=== PATIENT | female | born 1980 | race Caucasian/White ===

== ENCOUNTER 2016-02-24 00:07 | Emergency (ER) | payer BC ==
[~2016-02-24] VITALS: Ht 160 cm; Wt 84.0 kg
[~2016-02-24 00:07] MED LIST: ACCOLATE 220 MG/1 TA PO; ALAVERT10 M1 PO; ALLEGRA 180MG180 MG PO; AMOXICILLIN 8751 TAB PO; CLEOCIN HCL300 MG PO; FLEXERIL 1010 MG/TAB PO; NO HOME MEDICATIONS; PHENERGAN 25 TA25 MG PO; PREDNISONE20 MG PO; PRENATAL VITAMI1 TAB PO; PRENATAL1 TA1 PO; PROVENTIL0.09 MG/A1 IH; VALTREX PO; VOLTAREN 75 DR75 MG PO; ZOFRAN 4MG T4 MG/TAB PO
[2016-02-24 00:09] VITALS: TEMP 98.4
[2016-02-24] MEDS ORDERED: FLAGYL500 MG PO (00:27)
[2016-02-24] MEDS ORDERED: PRENATAL1 TA7 PO (00:28)
[2016-02-24 01:03] LABS: PH 7 (5-8); URINE APPEARANCE Cloudy; URINE BACTERIA Rare /hpf; URINE BILIRUBIN Negative (NEGATIVE); URINE BLOOD Negative (NEGATIVE); URINE COLOR Amber; URINE GLUCOSE Negative (NEGATIVE); URINE KETONE Negative (NEGATIVE); URINE RBC 0-2 /hpf; URINE UROBILINOGEN Negative (NEGATIVE)
[2016-02-24 01:40] VITALS: BP 94/46; PULSE 96
== END 2016-02-24 01:43 | disposition home or self-care (01) ==
LOC: COL.ER 00:07
PROVIDERS: Emergency Medicine
DX: O99.612 Diseases of the digestive system complicating pregnancy, second trimester (principal); R10.31 Right lower quadrant pain; Z3A.18 18 weeks gestation of pregnancy
CPT/HCPCS: J3010

== ENCOUNTER → 2016-03-06 | Outpatient (CLI) | payer BC ==
[~2016-03-06] MED LIST changes: +FLAGYL500 MG PO; +IBU800 M1 PO; +NORMODYNE200 MG PO; +PERCOCET 325 MG1 TA2 PO; +PRENATAL1 TA7 PO; +PROCARDIA XL 3030 MG PO; +SUDAFED30 MG PO; +TYLENOL 500MG500 MG PO
== END ==
LOC: COL.RAD 12:50
DX: O26.892 Other specified pregnancy related conditions, second trimester (principal); M54.5 Low back pain; Z3A.20 20 weeks gestation of pregnancy

== ENCOUNTER 2016-03-20 21:50 | Emergency (ER) | payer BC ==
[~2016-03-20] VITALS: Ht 160 cm; Wt 84.1 kg
[~2016-03-20 21:50] MED LIST changes: -IBU800 M1 PO; -NORMODYNE200 MG PO; -PERCOCET 325 MG1 TA2 PO; -PROCARDIA XL 3030 MG PO; -SUDAFED30 MG PO; -TYLENOL 500MG500 MG PO
[2016-03-20 21:52] VITALS: BP 126/41; TEMP 98.5
[2016-03-20] MEDS ORDERED: AMOXICILLIN 8751 TAB PO (21:58)
[2016-03-20] MEDS ORDERED: SUDAFED30 MG PO (21:59)
[2016-03-20 22:53] LABS: INFLUENZA B NEGATIVE
[2016-03-20] MEDS ORDERED: PREDNISONE20 MG PO (23:11)
[2016-03-20 23:39] VITALS: PULSE 100
== END 2016-03-20 23:39 | disposition home or self-care (01) ==
LOC: COL.ER 21:50
PROVIDERS: Family Medicine
DX: H66.93 Otitis media, unspecified, bilateral (principal)
CPT/HCPCS: J7512

== ENCOUNTER 2016-03-27 10:11 | Outpatient (CLI) | payer BC ==
[~2016-03-27] VITALS: Ht 160 cm; Wt 85.0 kg
[~2016-03-27 10:11] MED LIST changes: +SUDAFED30 MG PO
[2016-03-27 10:30] VITALS: BP 120/76; PULSE 102; TEMP 98.1
[2016-03-27] MEDS ORDERED: TYLENOL 500MG500 MG PO (10:40)
[2016-03-27 12:30] VITALS: BP 110/65; PULSE 93; TEMP 98
[2016-03-27 12:59] LABS: BASO % 0.3 % (0.0-2.0); EOS # 0.1 (0.0-0.7); EOS % 0.5 % (0-4.0); GRAN # 10.6 (1.4-6.5); GRAN % 72.5 % (42.2-75.2); LYMPH # 2.6 (1.2-3.4); MEAN CELL VOLUME 90 fl (80.0-100.0); MEAN CORPUSCULAR HGB CONC 34 g/dl (33.0-37.0); MEAN PLATELET VOLUME 10.1 fl (7.4-10.4); MONO % 6.9 % (1.7-9.3); PLATELET COUNT 348 K/mm3 (130-400); RED BLOOD COUNT 3.65 M/mm3 (4.10-5.30); REDCELL DISTRIBUTION WIDTH-CV 12.4 % (11.5-14.5); WHITE BLOOD COUNT 14.6 K/mm3 (4.8-10.8)
[2016-03-27 13:06] LABS: HEMOGLOBIN 11.3 g/dl (12.5-16.0); MEAN CORPUSCULAR HEMOGLOBIN 31 pg (27.0-31.0)
[2016-03-27 13:14] LABS: ADJUSTED CALCIUM 9.6 mg/dL (8.4-10.2); ALBUMIN 3.6 gm/dL (3.5-5.0); BILIRUBIN,TOTAL 0.5 mg/dL (0.0-1.0); CALCIUM 9.3 mg/dL (8.4-10.2); CREATININE, serum 0.47 mg/dL (0.52-1.25); POTASSIUM 3.1 mmol/L (3.4-5.0); TOTAL PROTEIN 6.9 gm/dL (6.4-8.2)
[2016-03-27 13:32] LABS: PH 6 (5-8); SQUAMOUS EPITHELIAL None Seen /hpf; URINE APPEARANCE Cloudy; URINE BACTERIA None Seen /hpf; URINE BILIRUBIN Negative (NEGATIVE); URINE BLOOD 3+ (NEGATIVE); URINE COLOR Red; URINE GLUCOSE Negative (NEGATIVE); URINE KETONE Negative (NEGATIVE); URINE RBC >50 /hpf; URINE UROBILINOGEN Negative (NEGATIVE); URINE WBC None Seen /hpf
[2016-03-27 13:45] VITALS: BP 115/74; PULSE 94; TEMP 98.1
== END 2016-03-27 14:00 | disposition home or self-care (01) ==
LOC: LDRO 10:11 → LDR 10:40 → LDRO 14:00
PROVIDERS: Obstetrics & Gynecology
DX: O46.8X2 Other antepartum hemorrhage, second trimester (principal); O99.212 Obesity complicating pregnancy, second trimester; O99.332 Smoking (tobacco) complicating pregnancy, second trimester; Z3A.22 22 weeks gestation of pregnancy; F17.210 Nicotine dependence, cigarettes, uncomplicated

== ENCOUNTER 2016-07-02 22:15 | Inpatient (IN) | payer BC ==
[~2016-07-02] VITALS: Ht 160 cm; Wt 93.2 kg
[~2016-07-02 22:15] MED LIST changes: +TYLENOL 500MG500 MG PO
[2016-07-02 23:00] VITALS: BP 132/74; PULSE 91; TEMP 98
[2016-07-02 23:30] VITALS: BP 109/59; PULSE 89
[2016-07-03] VITALS (48 sets, daily range): BP systolic 94–144; BP diastolic 53–88; PULSE 77–110; TEMP 97.5–98.7
[2016-07-03 01:48] LABS: BASO % 0.2 % (0.0-2.0); EOS # 0.2 (0.0-0.7); GRAN % 78.5 % (42.2-75.2); LYMPH # 2.4 (1.2-3.4); LYMPH % 13.4 % (20.0-51.0); MEAN CELL VOLUME 88 fl (80.0-100.0); MEAN CORPUSCULAR HGB CONC 35 g/dl (33.0-37.0); MEAN PLATELET VOLUME 10.4 fl (7.4-10.4); MONO # 1.1 (0.1-0.6); MONO % 6.3 % (1.7-9.3); PLATELET COUNT 281 K/mm3 (130-400); RED BLOOD COUNT 3.86 M/mm3 (4.10-5.30); REDCELL DISTRIBUTION WIDTH-CV 12.6 % (11.5-14.5); WHITE BLOOD COUNT 17.8 K/mm3 (4.8-10.8)
[2016-07-03 01:53] LABS: HEMATOCRIT 34.1 % (37.0-47.0); HEMOGLOBIN 11.8 g/dl (12.5-16.0); MEAN CORPUSCULAR HEMOGLOBIN 31 pg (27.0-31.0)
[2016-07-04 03:35] VITALS: BP 99/44; PULSE 77; TEMP 97.7
[2016-07-04 08:00] VITALS: BP 105/72; PULSE 79; TEMP 97.9
[2016-07-04] MEDS ORDERED: PERCOCET 325 MG1 TA2 PO (09:43)
[2016-07-04] MEDS ORDERED: IBU800 M1 PO (09:43)
[2016-07-04 14:17] VITALS: BP 137/70; PULSE 85; TEMP 98.1
[2016-07-04 20:45] VITALS: BP 137/81; PULSE 77; TEMP 98
[2016-07-05 09:30] VITALS: BP 127/73; PULSE 81; TEMP 98.3
== END 2016-07-05 16:15 | disposition home or self-care (01) | DRG 775 ==
LOC: LDRO 22:15 → LDR 07-03 01:11 → OB 07-03 01:11
PROVIDERS: Obstetrics & Gynecology
PROC: 10E0XZZ Delivery of Products of Conception, External Approach (ICD-10-PCS; principal; 2016-07-03)
PROC: 0HQ9XZZ Repair Perineum Skin, External Approach (ICD-10-PCS; 2016-07-03)
DX: O99.334 Smoking (tobacco) complicating childbirth (principal); F17.210 Nicotine dependence, cigarettes, uncomplicated; O69.1XX0 Labor and delivery complicated by cord around neck, with compression, not applicable or unspecified; O70.0 First degree perineal laceration during delivery; Z3A.37 37 weeks gestation of pregnancy; Z37.0 Single live birth
CPT/HCPCS: J2405; J2590; J2795; J7120

== ENCOUNTER 2016-07-13 20:55 | Emergency (ER) | payer BC ==
[~2016-07-13] VITALS: Ht 160 cm; Wt 86.4 kg
[~2016-07-13 20:55] MED LIST changes: +IBU800 M1 PO; +PERCOCET 325 MG1 TA2 PO
[2016-07-13 20:58] VITALS: TEMP 98.1
[2016-07-13] MEDS ORDERED: NORMODYNE200 MG PO (21:02)
[2016-07-13 21:58] LABS: BASO % 0.4 % (0.0-2.0); EOS # 0.3 (0.0-0.7); EOS % 3.3 % (0-4.0); GRAN # 4.9 (1.4-6.5); GRAN % 58.9 % (42.2-75.2); LYMPH # 2.5 (1.2-3.4); LYMPH % 29.6 % (20.0-51.0); MEAN CELL VOLUME 90 fl (80.0-100.0); MEAN CORPUSCULAR HGB CONC 33 g/dl (33.0-37.0); MEAN PLATELET VOLUME 9.4 fl (7.4-10.4); MONO # 0.6 (0.1-0.6); MONO % 7.6 % (1.7-9.3); PLATELET COUNT 363 K/mm3 (130-400); RED BLOOD COUNT 3.81 M/mm3 (4.10-5.30); REDCELL DISTRIBUTION WIDTH-CV 12.3 % (11.5-14.5); WHITE BLOOD COUNT 8.4 K/mm3 (4.8-10.8)
[2016-07-13 21:59] LABS: HEMATOCRIT 34.4 % (37.0-47.0); HEMOGLOBIN 11.5 g/dl (12.5-16.0); MEAN CORPUSCULAR HEMOGLOBIN 30 pg (27.0-31.0)
[2016-07-13 22:09] LABS: ADJUSTED CALCIUM 9.2 mg/dL (8.4-10.2); ALBUMIN 3.8 gm/dL (3.5-5.0); BILIRUBIN,TOTAL 0.5 mg/dL (0.0-1.0); CREATININE, serum 0.75 mg/dL (0.52-1.25); POTASSIUM 3.7 mmol/L (3.4-5.0); TOTAL PROTEIN 7.1 gm/dL (6.4-8.2)
[2016-07-13 22:22] LABS: PH 5 (5-8); URINE APPEARANCE Hazy; URINE BACTERIA None Seen /hpf; URINE BILIRUBIN Negative (NEGATIVE); URINE BLOOD 2+ (NEGATIVE); URINE COLOR Yellow; URINE GLUCOSE Negative (NEGATIVE); URINE KETONE Trace (NEGATIVE); URINE RBC 20-50 /hpf; URINE UROBILINOGEN Negative (NEGATIVE)
[2016-07-14] MEDS ORDERED: PROCARDIA XL 3030 MG PO (00:11)
[2016-07-14 01:56] VITALS: BP 172/92; PULSE 71
== END 2016-07-14 01:56 | disposition home or self-care (01) ==
LOC: COL.ER 20:55
PROVIDERS: Emergency Medicine
DX: O99.43 Diseases of the circulatory system complicating the puerperium (principal); O99.89 Other specified diseases and conditions complicating pregnancy, childbirth and the puerperium; O99.335 Smoking (tobacco) complicating the puerperium; O99.63 Diseases of the digestive system complicating the puerperium; I10 Essential (primary) hypertension; R51 Headache; K21.9 Gastro-esophageal reflux disease without esophagitis; Z90.49 Acquired absence of other specified parts of digestive tract

== ENCOUNTER 2017-01-03 18:15 | Inpatient (IN) | payer BC ==
[~2017-01-03] VITALS: Ht 162.6 cm; Wt 89.4 kg
[~2017-01-03 18:15] MED LIST changes: +NORMODYNE200 MG PO; +PROCARDIA XL 3030 MG PO
[2017-01-03] MEDS ORDERED: TOPROL XL100 MG PO (18:24)
[2017-01-03] MEDS ORDERED: WELLBUTRIN SR150 M1 PO (18:25)
[2017-01-03] MEDS ORDERED: BACTRIM DS 8001 TAB PO (18:26)
[2017-01-03 19:44] LABS: HEMATOCRIT 39.2 % (37.0-47.0); HEMOGLOBIN 13.7 g/dl (12.5-16.0); MEAN CELL VOLUME 90 fl (80.0-100.0); MEAN CORPUSCULAR HEMOGLOBIN 32 pg (27.0-31.0); MEAN CORPUSCULAR HGB CONC 35 g/dl (33.0-37.0); MEAN PLATELET VOLUME 10.3 fl (7.4-10.4); PLATELET COUNT 253 K/mm3 (130-400); RED BLOOD COUNT 4.35 M/mm3 (4.10-5.30); WHITE BLOOD COUNT 8.5 K/mm3 (4.8-10.8)
[2017-01-03 19:57] LABS: ADD PATHOLOGY DIFF REVIEW NO
[2017-01-03 20:00] LABS: INFLUENZA A NEGATIVE; INFLUENZA B NEGATIVE
[2017-01-03 20:49] LABS: BAND 20 % (0-10); EOSINOPHIL 2 % (0-4); LYMPHOCYTE 6 % (20.0-51.0); NEUTROPHILS 71 % (42.0-75.2); PLATELET ESTIMATE NORMAL (NORMAL); TOTAL CELLS COUNTED 100
[2017-01-03] MEDS ORDERED: CEPHALEXIN500 M1 PO (20:58)
[2017-01-03 21:40] LABS: ADJUSTED CALCIUM 8.7 mg/dL (8.4-10.2); ALBUMIN 3.5 gm/dL (3.5-5.0); BILIRUBIN,TOTAL 0.8 mg/dL (0.0-1.0); CALCIUM 8.3 mg/dL (8.4-10.2); CREATININE, serum 0.87 mg/dL (0.52-1.25); POTASSIUM 3.8 mmol/L (3.4-5.0)
[2017-01-03 22:54] LABS: COLLECTION METHOD CLEAN CATCH
[2017-01-03 23:14] LABS: MUCOUS Present /lpf; PH 5 (5-8); URINE APPEARANCE Hazy; URINE BACTERIA None Seen /hpf; URINE BILIRUBIN Negative (NEGATIVE); URINE BLOOD Negative (NEGATIVE); URINE COLOR Amber; URINE GLUCOSE Negative (NEGATIVE); URINE KETONE Negative (NEGATIVE); URINE LEUKOCYTE ESTERASE Negative (NEGATIVE); URINE PROTEIN(semi-quant) 1+ (NEGATIVE); URINE RBC None Seen /hpf; URINE UROBILINOGEN Negative (NEGATIVE)
[2017-01-04] VITALS (862 sets, daily range): BP systolic 114–127; BP diastolic 64–71; PULSE 61–102; TEMP 97.3–98.6; O2SAT 91–100
[2017-01-04 01:50] LABS: CEREBROSPINAL TUBE #1; CEREBROSPINAL TUBE #4; CSF APPEARANCE CLEAR; CSF COLOR COLORLESS; CSF POLYMORPHONUCLEAR 83 % (0-6)
[2017-01-04 01:51] LABS: CSF POLYMORPHONUCLEAR 95 % (0-6)
[2017-01-04 05:40] LABS: BASO % 0.3 % (0.0-2.0); EOS # 0.2 (0.0-0.7); EOS % 1.9 % (0-4.0); GRAN # 9.4 (1.4-6.5); GRAN % 87.2 % (42.2-75.2); LYMPH # 0.5 (1.2-3.4); LYMPH % 4.7 % (20.0-51.0); MEAN CELL VOLUME 91 fl (80.0-100.0); MEAN CORPUSCULAR HEMOGLOBIN 31 pg (27.0-31.0); MEAN CORPUSCULAR HGB CONC 34 g/dl (33.0-37.0); MEAN PLATELET VOLUME 10.1 fl (7.4-10.4); MONO # 0.6 (0.1-0.6); MONO % 5.6 % (1.7-9.3); PLATELET COUNT 208 K/mm3 (130-400); RED BLOOD COUNT 3.84 M/mm3 (4.10-5.30); WHITE BLOOD COUNT 10.8 K/mm3 (4.8-10.8)
[2017-01-04 05:50] LABS: ADJUSTED CALCIUM 8.3 mg/dL (8.4-10.2); ALBUMIN 3.2 gm/dL (3.5-5.0); BILIRUBIN,TOTAL 0.6 mg/dL (0.0-1.0); CALCIUM 7.7 mg/dL (8.4-10.2); CREATININE, serum 0.85 mg/dL (0.52-1.25); POTASSIUM 3.9 mmol/L (3.4-5.0); TOTAL PROTEIN 5.6 gm/dL (6.4-8.2)
[2017-01-04 13:41] LABS: C-REACTIVE PROTEIN 6.2 mg/dL (0.0-0.9)
[2017-01-04 13:55] LABS: THYROXINE (T4)-TOTAL 5.9 ug/dL (5.5-11.0)
[2017-01-04 14:09] LABS: THYROID STIMULATING HORMONE 1.5 uIU/mL (0.465-4.680)
[2017-01-05] VITALS (774 sets, daily range): BP systolic 133–152; BP diastolic 68–100; PULSE 54–66; TEMP 97.2–98.2; O2SAT 88–100
[2017-01-05 05:59] LABS: BASO % 0.2 % (0.0-2.0); EOS # 0.3 (0.0-0.7); EOS % 4.7 % (0-4.0); GRAN # 3.6 (1.4-6.5); GRAN % 62.5 % (42.2-75.2); LYMPH # 1.3 (1.2-3.4); LYMPH % 22.8 % (20.0-51.0); MEAN CELL VOLUME 91 fl (80.0-100.0); MEAN CORPUSCULAR HGB CONC 34 g/dl (33.0-37.0); MEAN PLATELET VOLUME 10.5 fl (7.4-10.4); MONO # 0.6 (0.1-0.6); MONO % 9.5 % (1.7-9.3); PLATELET COUNT 193 K/mm3 (130-400); WHITE BLOOD COUNT 5.8 K/mm3 (4.8-10.8)
[2017-01-05 06:06] LABS: HEMATOCRIT 31.7 % (37.0-47.0); HEMOGLOBIN 10.8 g/dl (12.5-16.0); MEAN CORPUSCULAR HEMOGLOBIN 31 pg (27.0-31.0)
[2017-01-05 06:11] LABS: ADJUSTED CALCIUM 8.5 mg/dL (8.4-10.2); ALBUMIN 3.1 gm/dL (3.5-5.0); BILIRUBIN,TOTAL 0.3 mg/dL (0.0-1.0); CALCIUM 7.8 mg/dL (8.4-10.2); CREATININE, serum 0.72 mg/dL (0.52-1.25); POTASSIUM 3.4 mmol/L (3.4-5.0); TOTAL PROTEIN 5.9 gm/dL (6.4-8.2)
[2017-01-05 16:29] LABS: COLLECTION METHOD CLEAN CATCH
[2017-01-05 16:36] LABS: MUCOUS Present /lpf; PH 6 (5-8); URINE APPEARANCE Clear; URINE BACTERIA None Seen /hpf; URINE BILIRUBIN Negative (NEGATIVE); URINE BLOOD 1+ (NEGATIVE); URINE COLOR Straw; URINE GLUCOSE Negative (NEGATIVE); URINE KETONE Trace (NEGATIVE); URINE LEUKOCYTE ESTERASE Negative (NEGATIVE); URINE PROTEIN(semi-quant) Negative (NEGATIVE); URINE RBC 0-2 /hpf; URINE UROBILINOGEN Negative (NEGATIVE); URINE WBC 0-2 /hpf
[2017-01-06 00:55] VITALS: BP 136/90; PULSE 63; TEMP 98
[2017-01-06 06:09] VITALS: BP 139/73; PULSE 55; TEMP 98.2
[2017-01-06 09:15] LABS: BASO % 0.2 % (0.0-2.0); EOS # 0.3 (0.0-0.7); EOS % 5.1 % (0-4.0); GRAN # 3.4 (1.4-6.5); GRAN % 62.8 % (42.2-75.2); HEMATOCRIT 37.5 % (37.0-47.0); LYMPH # 1.2 (1.2-3.4); LYMPH % 22.1 % (20.0-51.0); MEAN CELL VOLUME 88 fl (80.0-100.0); MEAN CORPUSCULAR HEMOGLOBIN 31 pg (27.0-31.0); MEAN CORPUSCULAR HGB CONC 35 g/dl (33.0-37.0); MEAN PLATELET VOLUME 10.4 fl (7.4-10.4); MONO # 0.5 (0.1-0.6); MONO % 9.3 % (1.7-9.3); PLATELET COUNT 263 K/mm3 (130-400); RED BLOOD COUNT 4.28 M/mm3 (4.10-5.30); WHITE BLOOD COUNT 5.5 K/mm3 (4.8-10.8)
[2017-01-06 09:21] LABS: HEMOGLOBIN 13.2 g/dl (12.5-16.0)
[2017-01-06 09:29] LABS: CALCIUM 9.2 mg/dL (8.4-10.2); CREATININE, serum 0.77 mg/dL (0.52-1.25); POTASSIUM 3.3 mmol/L (3.4-5.0)
[2017-01-06 10:00] VITALS: BP 123/83; PULSE 109; TEMP 98.2
[2017-01-06] MEDS ORDERED: DOXYCYCLINE 10100 MG PO (12:10)
[2017-01-06 13:53] VITALS: BP 148/77; PULSE 74; TEMP 98.3
[2017-01-06] MEDS ORDERED: MIDRIN 325 MG-11 CAP PO (17:09)
== END 2017-01-06 18:30 | disposition home or self-care (01) | DRG 872 ==
LOC: COL.ER 18:15 → ICU 01-04 00:53 → SURG 01-04 00:53
PROVIDERS: Emergency Medicine; Internal Medicine; Nurse Practitioner Family; Physician Assistant; Psychiatry & Neurology Neurology
PROC: 009U3ZX Drainage of Spinal Canal, Percutaneous Approach, Diagnostic (ICD-10-PCS; principal; 2017-01-03)
DX: A41.9 Sepsis, unspecified organism (principal); L03.312 Cellulitis of back [any part except buttock and flank]; R65.20 Severe sepsis without septic shock; G43.909 Migraine, unspecified, not intractable, without status migrainosus; J35.01 Chronic tonsillitis; E87.6 Hypokalemia; K21.9 Gastro-esophageal reflux disease without esophagitis; I10 Essential (primary) hypertension; F17.210 Nicotine dependence, cigarettes, uncomplicated
CPT/HCPCS: 99223-AI; 99239; C9113; J0696; J1200; J1650; J1885; J1956; J2405; J2543; J2765; J3010; J3370; J7030; J7050; Q9967

== ENCOUNTER 2017-06-16 23:39 | Emergency (ER) | payer BC ==
[~2017-06-16] VITALS: Ht 162.6 cm; Wt 86.4 kg
[~2017-06-16 23:39] MED LIST changes: +BACTRIM DS 8001 TAB PO; +CEPHALEXIN500 M1 PO; +DOXYCYCLINE 10100 MG PO; +MIDRIN 325 MG-11 CAP PO; +TOPROL XL100 MG PO; +WELLBUTRIN SR150 M1 PO
[2017-06-16 23:44] VITALS: BP 157/93; PULSE 76; TEMP 98
[2017-06-17] MEDS ORDERED: NORCO 325 MG-51 TAB PO (00:40)
== END 2017-06-17 01:31 | disposition home or self-care (01) ==
LOC: COL.ER 23:39
DX: L03.011 Cellulitis of right finger (principal); I10 Essential (primary) hypertension; F17.210 Nicotine dependence, cigarettes, uncomplicated

== ENCOUNTER 2018-03-24 10:41 | Day surgery (SDC) | payer BC ==
[~2018-03-24] VITALS: Ht 160 cm; Wt 98.2 kg
[2018-03-24] VITALS (7 sets, daily range): BP systolic 102–148; BP diastolic 59–84; PULSE 65–80; TEMP 97.7–97.9
[~2018-03-24 10:41] MED LIST changes: +NORCO 325 MG-51 TAB PO
[2018-03-24] MEDS ORDERED: AMOXICILLIN 8751 TAB PO (11:26)
[2018-03-24] MEDS ORDERED: HCTZ 25MG TAB25 MG PO (11:27)
[2018-03-24] MEDS ORDERED: NORCO 325 MG-51 TAB PO (11:28)
[2018-03-24] MEDS ORDERED: IBU800 M1 PO (11:28)
[2018-03-24] MEDS ORDERED: PROBIOTIC-SUNMARK PO (11:29)
[2018-03-24] MEDS ORDERED: ZANAFLEX2 MG PO (11:29)
[2018-03-24] MEDS ORDERED: TUCKS50% TP (11:30)
--- NOTE | 2018-03-24 13:25 | NUR ---
The patient arrived back to [facility] from the recovery room at this time. The patient appears drowsy but arouses easily to her name. The patient's post operative vital signs were started at this time. The patient has mesh undies and fluffed 4x4s in place to her rectal area. Call light is within reach. brought back to be at her bedside. Will continue to monitor the patient.
--- NOTE | 2018-03-24 13:40 | NUR ---
The patient appears to be resting comfortably on the cart at this time. The patient's husbaned remains at her bedside. The patient agrees to try some cranberry juice and water at this time. Will continue to monitor the patient.
--- NOTE | 2018-03-24 13:55 | NUR ---
The patient reports increased pain at her incision site at this time and was given a PRN dose of Fentanyl 50 mcg at this time. The patient's vital signs appear stable. Will continue to monitor the patient.
--- NOTE | 2018-03-24 14:10 | NUR ---
The patient was given some white toast at this time. She had complaints of a headache and her turned the lights down in the room. The patient's vital signs appear stable. Will continue to monitor the patient.
--- NOTE | 2018-03-24 14:45 | NUR ---
The patient was given a PRN dose of Robinson two tabs at this time. The patient ambulated to the bathroom with the stand by assistance of one nurse and appeared to tolerate the activity well. The patient voided without difficulty. The nurse instructed the patient to get dressed and notify the staff when she is ready to be escorted out.
--- NOTE | 2018-03-24 15:05 | NUR ---
Discharge instructions were reviewed with the patient and her at this time. They both verbalized understanding and have no questions for the nurse at this time. The patient's IV to her left hand was removed and a pressure dressing was applied to the site. The patient is dressed and ready to be escorted out.
--- NOTE | 2018-03-24 15:13 | NUR ---
The patient was escorted out via wheelchair to a private vehicle by DOMINGA Horton. The patient's belongings and discharge paperwork were sent with her. The patient's is present to drive her home.
== END 2018-03-24 15:13 | disposition home or self-care (01) ==
LOC: SDCO 10:41
DX: K61.1 Rectal abscess (principal); I10 Essential (primary) hypertension; D64.9 Anemia, unspecified; K21.9 Gastro-esophageal reflux disease without esophagitis; G89.29 Other chronic pain; M54.9 Dorsalgia, unspecified; Z90.49 Acquired absence of other specified parts of digestive tract; Z88.1 Allergy status to other antibiotic agents; Z88.8 Allergy status to other drugs, medicaments and biological substances; Z91.013 Allergy to seafood
CPT/HCPCS: J0690; J1100; J1885; J2405; J2704; J3010; J7120

== ENCOUNTER 2018-05-10 17:55 | Observation (INO) | payer BC ==
[~2018-05-10] VITALS: Ht 175.3 cm; Wt 99.4 kg
[~2018-05-10 17:55] MED LIST changes: +HCTZ 25MG TAB25 MG PO; +PROBIOTIC-SUNMARK PO; +TUCKS50% TP; +ZANAFLEX2 MG PO
[2018-05-10 19:24] LABS: BASO % 0.3 % (0.0-2.0); EOS # 0.1 (0.0-0.7); EOS % 1.3 % (0-4.0); GRAN # 8.6 (1.4-6.5); GRAN % 83.5 % (42.2-75.2); HEMATOCRIT 40.4 % (37.0-47.0); HEMOGLOBIN 14.2 g/dl (12.5-16.0); LYMPH # 1.1 (1.2-3.4); LYMPH % 10.2 % (20.0-51.0); MEAN CELL VOLUME 91 fl (80.0-100.0); MEAN CORPUSCULAR HEMOGLOBIN 32 pg (27.0-31.0); MEAN CORPUSCULAR HGB CONC 35 g/dl (33.0-37.0); MEAN PLATELET VOLUME 9.7 fl (7.4-10.4); MONO # 0.5 (0.1-0.6); MONO % 4.4 % (1.7-9.3); PLATELET COUNT 252 K/mm3 (130-400); RED BLOOD COUNT 4.43 M/mm3 (4.10-5.30); REDCELL DISTRIBUTION WIDTH-CV 12.4 % (11.5-14.5)
[2018-05-10] MEDS ORDERED: HCTZ 25MG TAB25 MG PO (19:32)
[2018-05-10] MEDS ORDERED: LEXAPRO 10MG10 MG PO (19:32)
[2018-05-10] MEDS ORDERED: KAPSPARGO SPRI100 MG PO (19:33)
[2018-05-10] MEDS ORDERED: VITAMIN D31000 I1 PO (19:34)
[2018-05-10] MEDS ORDERED: MULTI VITAMINS1 TAB PO (19:34)
[2018-05-10 19:45] LABS: ALBUMIN 4.1 gm/dL (3.5-5.0); BILIRUBIN,TOTAL 0.7 mg/dL (0.0-1.0); C-REACTIVE PROTEIN 2.5 mg/dL (0.0-0.9); CALCIUM 8.8 mg/dL (8.4-10.2); CREATININE, serum 0.72 mg/dL (0.52-1.25); TOTAL PROTEIN 7.6 gm/dL (6.4-8.2)
[2018-05-10 20:27] LABS: COLLECTION METHOD CLEAN CATCH
[2018-05-10 20:43] LABS: MUCOUS Present /lpf; PH 8 (5-8); URINE APPEARANCE Hazy; URINE BACTERIA Rare /hpf; URINE BILIRUBIN Negative (NEGATIVE); URINE BLOOD 1+ (NEGATIVE); URINE COLOR Yellow; URINE GLUCOSE Negative (NEGATIVE); URINE KETONE Negative (NEGATIVE); URINE LEUKOCYTE ESTERASE 3+ (NEGATIVE); URINE NITRATE Negative (NEGATIVE); URINE PROTEIN(semi-quant) 2+ (NEGATIVE); URINE RBC 20-50 /hpf; URINE UROBILINOGEN >=4.0 mg/dL (NEGATIVE)
--- NOTE | 2018-05-10 23:10 | NUR ---
Patient admitted to room 324 via w/c from ED. Is alert and oriented x4. Reports headache with photophobia, has had since in the ED. Has IVF infusing to left AC site without redness or swelling. Reports nausea with abdominal discomfort radiating to right flank. Patient does have a UTI. Will be on a clear liquid diet. Had a fistulotomy 4 days ago, has 2 small red rubber drains protruding from her anus. These are the size and thickness of a rubber band. No redness or drainage from anal area. Oriented to bed and room.
[2018-05-10] MEDS ORDERED: MASON NATURAL2000 IU PO (23:29)
[2018-05-10] MEDS ORDERED: TOPROL XL100 MG PO (23:32)
--- NOTE | 2018-05-10 23:59 | NUR ---
Morphine 2mg IV given for headache, IV Rocephin 1GM infusing without problem. Patient up to bathroom, thought she needed to have a BM, no results.
[2018-05-11 00:19] VITALS: BP 111/65; PULSE 78; TEMP 98.4
--- NOTE | 2018-05-11 01:05 | NUR ---
Patient reports continued nausea, medicated with Phenergan 12.5mg IV now.
--- NOTE | 2018-05-11 02:34 | NUR ---
Patient resting with eyes closed, no report of nausea. IVF infusing at 125cc/hr without redness or swelling.
[2018-05-11 04:00] VITALS: BP 113/73; PULSE 70; TEMP 98.3
--- NOTE | 2018-05-11 06:00 | NUR ---
No diarrhea reported or continued nausea. Has rested well after IV Phenergan.
[2018-05-11 08:10] VITALS: BP 132/78; PULSE 73; TEMP 98.5
--- NOTE | 2018-05-11 09:47 | NUR ---
DAMIAN met with the patient to discuss discharge plan. The patient lives in [place] with her , Naldo, and their three children. She reports independence with ADLs and does not use any DME. The patient's PCP is Dr. Carri Miller and she receives her medications at the [facility]. She reports no difficulties obtaining her meds. The patient does not have advanced directives and she was not interested in completing them at this time. The patient plans to return home with her family upon discharge. No additional needs at this time.
--- NOTE | 2018-05-11 11:18 | NUR ---
Patient alert and oriented, answers questions appropriately. See assessment. C/o right flank pain. C/o urinary hesitancy and burning. No c/o nausea or vomiting. No other c/o at this time.
--- NOTE | 2018-05-11 11:50 | NUR ---
First visit from the laundry laborer. No needs right now.
[2018-05-11 11:57] VITALS: BP 109/75; PULSE 71; TEMP 98.4
--- NOTE | 2018-05-11 13:36 | NUR ---
Dr Lucio here to see patient.
--- NOTE | 2018-05-11 15:23 | NUR ---
Discharge instructions reviewed with patient and spouse, verbalized understanding. Discharged via wheelchair to auto/home with spouse at 1520.
== END 2018-05-11 15:20 | disposition home or self-care (01) ==
LOC: COL.ER 17:55 → SURG 22:37
PROVIDERS: Nurse Practitioner; ADMIT Surgery
DX: R19.7 Diarrhea, unspecified (principal); R11.2 Nausea with vomiting, unspecified; R10.84 Generalized abdominal pain; I10 Essential (primary) hypertension; F41.9 Anxiety disorder, unspecified; F17.210 Nicotine dependence, cigarettes, uncomplicated
CPT/HCPCS: A4216; G0378; J0696; J1170; J1200; J1885; J2270; J2405; J2550; J2765; J7030

== ENCOUNTER → 2018-06-10 | Outpatient (CLI) | payer BC ==
[~2018-06-10] MED LIST changes: +KAPSPARGO SPRI100 MG PO; +LEXAPRO 10MG10 MG PO; +MASON NATURAL2000 IU PO; +MULTI VITAMINS1 TAB PO; +VITAMIN D31000 I1 PO
== END ==
LOC: COL.RAD 14:00
DX: J35.1 Hypertrophy of tonsils (principal); R59.0 Localized enlarged lymph nodes
CPT/HCPCS: Q9967

== ENCOUNTER 2018-07-01 20:10 | Emergency (ER) | payer BC ==
[~2018-07-01] VITALS: Ht 160 cm; Wt 125.0 kg
[2018-07-01 20:25] VITALS: TEMP 98.7
[2018-07-01] MEDS ORDERED: FLONASE NASAL S16 GM NS (20:49)
[2018-07-01] MEDS ORDERED: ZYRTEC 10MG10 MG PO (20:49)
[2018-07-01] MEDS ORDERED: CYMBALTA 30MG30 MG PO (20:49)
[2018-07-01] MEDS ORDERED: ZANTAC 150MG T150 MG PO (20:50)
[2018-07-01] MEDS ORDERED: SINGULAIR 110 MG/TAB PO (20:50)
[2018-07-01 21:08] LABS: BASO % 0.5 % (0.0-2.0); EOS # 0.3 (0.0-0.7); EOS % 3.2 % (0-4.0); GRAN # 4.9 (1.4-6.5); GRAN % 60.2 % (42.2-75.2); HEMATOCRIT 40.5 % (37.0-47.0); LYMPH % 24.9 % (20.0-51.0); MEAN CELL VOLUME 91 fl (80.0-100.0); MEAN CORPUSCULAR HEMOGLOBIN 32 pg (27.0-31.0); MEAN CORPUSCULAR HGB CONC 35 g/dl (33.0-37.0); MONO # 0.9 (0.1-0.6); MONO % 11.1 % (1.7-9.3); PLATELET COUNT 250 K/mm3 (130-400); RED BLOOD COUNT 4.43 M/mm3 (4.10-5.30); REDCELL DISTRIBUTION WIDTH-CV 12.1 % (11.5-14.5)
[2018-07-01 21:20] LABS: ALBUMIN 4.3 gm/dL (3.5-5.0); BILIRUBIN,TOTAL 0.6 mg/dL (0.0-1.0); C-REACTIVE PROTEIN 1.6 mg/dL (0.0-0.9); CALCIUM 9.1 mg/dL (8.4-10.2); CREATININE, serum 0.66 (0.52-1.25); POTASSIUM 3.7 mmol/L (3.4-5.0)
[2018-07-01 23:20] VITALS: BP 110/69; PULSE 78
== END 2018-07-01 23:20 | disposition home or self-care (01) ==
LOC: COL.ER 20:10
PROVIDERS: Emergency Medicine
DX: R10.2 Pelvic and perineal pain (principal); K21.9 Gastro-esophageal reflux disease without esophagitis; M79.7 Fibromyalgia; Z90.49 Acquired absence of other specified parts of digestive tract; Z98.890 Other specified postprocedural states; Z79.51 Long term (current) use of inhaled steroids
CPT/HCPCS: J1885; J2270; J2405; J7030; Q9967

== ENCOUNTER 2018-10-27 14:49 | Emergency (ER) | payer BC ==
[~2018-10-27] VITALS: Ht 160 cm; Wt 95.5 kg
[~2018-10-27 14:49] MED LIST changes: +CYMBALTA 30MG30 MG PO; +FLONASE NASAL S16 GM NS; +SINGULAIR 110 MG/TAB PO; +ZANTAC 150MG T150 MG PO; +ZYRTEC 10MG10 MG PO
[2018-10-27 14:50] VITALS: TEMP 98.5
[2018-10-27] MEDS ORDERED: LEXAPRO 5MG5 MG (15:17)
[2018-10-27] MEDS ORDERED: PREDNISONE20 MG PO (17:09)
[2018-10-27] MEDS ORDERED: PEPCID 20MG TAB20 MG PO (17:09)
[2018-10-27 17:45] VITALS: BP 118/80; PULSE 85
== END 2018-10-27 18:05 | disposition home or self-care (01) ==
LOC: COL.ER 14:49
DX: L50.9 Urticaria, unspecified (principal); T78.40XA Allergy, unspecified, initial encounter; I10 Essential (primary) hypertension; K21.9 Gastro-esophageal reflux disease without esophagitis; M79.7 Fibromyalgia; F17.210 Nicotine dependence, cigarettes, uncomplicated; Z88.1 Allergy status to other antibiotic agents
CPT/HCPCS: J7512

== ENCOUNTER → 2018-11-17 | Outpatient (CLI) | payer BC ==
[~2018-11-17] MED LIST changes: +LEXAPRO 5MG5 MG; +PEPCID 20MG TAB20 MG PO
[2018-11-17 13:36] LABS: BASO # 0.1 (0.0-0.2); BASO % 0.5 % (0.0-2.0); EOS # 0.3 (0.0-0.7); EOS % 3.1 % (0-4.0); GRAN # 5.7 (1.4-6.5); GRAN % 60.1 % (42.2-75.2); HEMATOCRIT 45.3 % (37.0-47.0); LYMPH # 2.5 (1.2-3.4); LYMPH % 26.4 % (20.0-51.0); MEAN CELL VOLUME 89 fl (80.0-100.0); MEAN CORPUSCULAR HEMOGLOBIN 32 pg (27.0-31.0); MEAN CORPUSCULAR HGB CONC 35 g/dl (33.0-37.0); MEAN PLATELET VOLUME 10.4 fl (7.4-10.4); MONO # 0.9 (0.1-0.6); MONO % 9.6 % (1.7-9.3); PLATELET COUNT 337 K/mm3 (130-400); RED BLOOD COUNT 5.07 M/mm3 (4.10-5.30)
[2018-11-17 13:43] LABS: CALCIUM 9.3 mg/dL (8.4-10.2); CREATININE, serum 0.71 (0.52-1.25); POTASSIUM 4.2 mmol/L (3.4-5.0)
== END ==
LOC: COL.LAB 12:37
PROVIDERS: Nurse Practitioner
DX: R00.2 Palpitations (principal)

== ENCOUNTER 2018-11-18 10:44 | Emergency (ER) | payer BC ==
[~2018-11-18] VITALS: Ht 160 cm; Wt 72.7 kg
[2018-11-18 10:47] VITALS: TEMP 98.4
[2018-11-18 11:29] LABS: BASO # 0.1 (0.0-0.2); BASO % 0.6 % (0.0-2.0); EOS # 0.2 (0.0-0.7); GRAN # 5.7 (1.4-6.5); HEMATOCRIT 44.9 % (37.0-47.0); HEMOGLOBIN 15.9 g/dl (12.5-16.0); LYMPH # 2.3 (1.2-3.4); LYMPH % 25.5 % (20.0-51.0); MEAN CELL VOLUME 89 fl (80.0-100.0); MEAN CORPUSCULAR HEMOGLOBIN 32 pg (27.0-31.0); MEAN CORPUSCULAR HGB CONC 35 g/dl (33.0-37.0); MEAN PLATELET VOLUME 10.3 fl (7.4-10.4); MONO # 0.8 (0.1-0.6); MONO % 8.6 % (1.7-9.3); PLATELET COUNT 325 K/mm3 (130-400); RED BLOOD COUNT 5.03 M/mm3 (4.10-5.30); REDCELL DISTRIBUTION WIDTH-CV 11.9 % (11.5-14.5)
[2018-11-18 11:41] LABS: ALANINE AMINOTRANSFERASE 46 U/L (9-52); ALBUMIN 4.8 gm/dL (3.5-5.0); ALKALINE PHOSPHATASE 86 U/L (50-136); ANION GAP 10 mmol/L (7-16); AST,SGOT 39 U/L (15-37); BILIRUBIN,TOTAL 0.9 mg/dL (0.0-1.0); BLOOD UREA NITROGEN 10 mg/dL (7-17); CALCIUM 9.4 mg/dL (8.4-10.2); CARBON DIOXIDE 26 mmol/L (22-30); CHLORIDE 105 mmol/L (98-107); CREATININE, serum 0.71 (0.52-1.25); GLUCOSE 91 mg/dL (74-106); POTASSIUM 3.6 mmol/L (3.4-5.0); SODIUM 141 mmol/L (137-145); TOTAL PROTEIN 8.5 gm/dL (6.4-8.2)
[2018-11-18 12:00] LABS: TROPONIN-I < 0.012 ng/mL (0.000-0.035)
[2018-11-18 12:12] LABS: TSH w REFLEX 0.605 uIU/mL (0.465-4.680)
[2018-11-18 13:00] VITALS: BP 110/76; PULSE 71
== END 2018-11-18 13:01 | disposition home or self-care (01) ==
LOC: COL.ER 10:44
PROVIDERS: Emergency Medicine
DX: R00.2 Palpitations (principal); Z90.89 Acquired absence of other organs

== ENCOUNTER 2019-07-30 00:05 | Emergency (ER) | payer BC ==
[~2019-07-30] VITALS: Ht 162.6 cm; Wt 98.6 kg
[2019-07-30 00:07] VITALS: BP 156/97; TEMP 98
[2019-07-30] MEDS ORDERED: FLEXERIL 1010 MG/TAB PO (00:12)
[2019-07-30] MEDS ORDERED: MOTRIN 800800 MG/TAB PO (00:12)
[2019-07-30] MEDS ORDERED: VALIUM 10MG10 MG/TAB PO (00:50)
[2019-07-30] MEDS ORDERED: MEDROL 4MG DOSPA4 MG PO (00:50)
[2019-07-30 01:38] VITALS: PULSE 84
== END 2019-07-30 01:38 | disposition home or self-care (01) ==
LOC: COL.ER 00:05
DX: R68.84 Jaw pain (principal); F17.210 Nicotine dependence, cigarettes, uncomplicated; M79.7 Fibromyalgia
CPT/HCPCS: J1100

== ENCOUNTER 2021-02-26 13:50 | Emergency (ER) | payer OTHER ==
[~2021-02-26] VITALS: Ht 160 cm; Wt 72.7 kg
[~2021-02-26 13:50] MED LIST changes: +MEDROL 4MG DOSPA4 MG PO; +MOTRIN 800800 MG/TAB PO; +VALIUM 10MG10 MG/TAB PO
[2021-02-26 14:01] VITALS: TEMP 97.8
[2021-02-26] MEDS ORDERED: LEXAPRO20 MG PO (14:09)
[2021-02-26 15:00] LABS: BASO % 0.2 % (0.0-2.0); EOS # 0.1 K/mm3 (0.0-0.7); EOS % 0.7 % (0.0-4.0); GRAN # 8.7 K/mm3 (1.4-6.5); GRAN % 68.1 % (42.2-75.2); HEMATOCRIT 44.3 % (37.0-47.0); HEMOGLOBIN 15.6 g/dl (12.5-16.0); LYMPH # 2.8 K/mm3 (1.2-3.4); LYMPH % 21.5 % (20.0-51.0); MEAN CELL VOLUME 91 fl (80.0-100.0); MEAN CORPUSCULAR HEMOGLOBIN 32 pg (27-31); MEAN CORPUSCULAR HGB CONC 35 g/dl (33.0-37.0); MEAN PLATELET VOLUME 9.5 fl (7.4-10.4); MONO # 1.2 K/mm3 (0.1-0.6); MONO % 9.1 % (1.7-9.3); PLATELET COUNT 400 K/mm3 (130-400); RED BLOOD COUNT 4.88 M/mm3 (4.10-5.30); REDCELL DISTRIBUTION WIDTH-CV 11.9 % (11.5-14.5)
[2021-02-26 15:16] LABS: ALBUMIN 4.1 gm/dL (3.5-5.0); BILIRUBIN,TOTAL 0.5 mg/dL (0.2-1.2); C-REACTIVE PROTEIN 0.32 mg/dL (0.00-0.50); CALCIUM 8.9 mg/dL (8.4-10.2); CREATININE, serum 0.68 mg/dL (0.57-1.11); POTASSIUM 3.8 mmol/L (3.5-4.5); TOTAL PROTEIN 7.9 gm/dL (6.2-8.1)
[2021-02-26] MEDS ORDERED: NORCO 325 MG-51 TAB PO (16:26)
[2021-02-26] MEDS ORDERED: MOTRIN 800800 MG/TAB PO (17:55)
[2021-02-26 18:00] VITALS: BP 130/76; PULSE 71
== END 2021-02-26 18:32 | disposition home or self-care (01) ==
LOC: COL.ER
PROVIDERS: Family Medicine
DX: U07.1 COVID-19 (principal); D72.829 Elevated white blood cell count, unspecified; I10 Essential (primary) hypertension; F17.210 Nicotine dependence, cigarettes, uncomplicated; Z88.2 Allergy status to sulfonamides; Z88.1 Allergy status to other antibiotic agents
CPT/HCPCS: J2405; J3010; J7120